=== PATIENT | female | born 1965 | race Caucasian/White ===

== ENCOUNTER 2024-02-09 18:01 | Emergency (ER) | payer BC, SELFPAY ==
[2024-02-09 18:06] VITALS: BP 164/72; PULSE 100; TEMP 36.9; O2SAT 96; BMI 25.1
--- NOTE | 2024-02-09 18:12 | XR_ITS ---
The [address] [address] Patient Name: ELSIE BROWER MRN: [id number] date: 1965 Sex: F Assigned Patient Location: ER Current Patient Location: ED.MAIN Accession/Order Number: [id number] Exam Date: 02/09/2024 18:46 Report Date: 02/09/2024 20:08 At the request of: MELINDA CHIN Procedure: XR knee RT 4V XR knee RT 4V, 02/09/2024 5:46 PM CDT: History: pain injury. . Comparison: None. Technique: 4 views right knee Findings/Impression: There is an acute nondisplaced fracture of the upper pole of the patella, best noted on the lateral radiograph. There is suprapatellar soft tissue swelling. There is no knee joint effusion. Electronically authenticated by: ANNIKA JOE Date: 02/09/2024 20:08
--- NOTE | 2024-02-09 20:18 | ED_ITS ---
HPI HPI - Extremity Injury (Lower) General Chief Complaint: Extremity Injury, Lower Stated Complaint: FELL Time Seen by Provider: 02/09/24 18:12 Source: patient and family () Mode of arrival: walk-in Limitations: no limitations History of Present Illness HPI Narrative: 58-year-old female presents to the emergency department with complaint of right knee injury. Patient states she recently became ill this evening, felt like she had to throw up, went running to the bathroom, dropped down to her knees, causing injury to the right 1. The other symptoms have improved. She complains of tenderness, swelling, bruising over the knee. Denies any other injury, motor or sensory changes, paresthesias. History of knee replacement surgery Quality:?Blunt trauma Severity:?Mild Timing:?Injury occurred shortly prior to arrival, Context: Normal setting and activity? Modifying factors:?Pain worse with palpation, Associated symptoms: swelling, bruising Related Data Allergies Allergy/AdvReac Type Severity Reaction Status Date / Time amoxicillin Allergy Intermediate Hives Verified 02/09/24 18:13 garlic Allergy Intermediate Anaphylaxis Verified 02/09/24 18:13 meperidine [From Demerol] Allergy Intermediate Hives Verified 02/09/24 18:13 tramadol Allergy Intermediate Hives Verified 02/09/24 18:13 Opioid HPI Opioid Management Most Recent Pain and Opioid Data: No Data to Display Review of Systems ROS Constitutional Denies: fatigue or malaise Musculoskeletal Reports: extremity pain, extremity swelling, joint pain and joint swelling; Denies: limited range of motion Neurological Denies: numbness in extremities or weakness in extremities Endocrine Denies: fatigue Exam Constitutional Vital Signs, click to edit/add: Last Vital Signs Temp 98.4 F 02/09/24 18:06 Pulse 100 H 02/09/24 18:06 Resp 18 02/09/24 18:06 BP 164/72 H 02/09/24 18:06 Pulse Ox 96 02/09/24 18:06 O2 Del Method Room Air 02/09/24 18:06 Documenting provider has reviewed patient's vital signs: yes Common normals: no apparent distress, oriented x3 and alert General appearance: well developed Cardio Peripheral pulses: dorsalis pedis pulses present right 2+ Extremity Other: Right knee: +tenderness to the patella with localized area of swelling, bruising consistent with hematoma.? No tenderness to the remainder of the knee, medial or lateral joint lines, posterior fossa.? No crepitus, deformity, instability, warmth.? ROM full flexion extension, but causes pain.? Strength 5/5 Neuro Common normals: oriented x3, no focal motor deficits and no sensory deficits noted Sensorium/orientation: alert Psych Common normals: mental status grossly normal and thought process normal Thought process: normal thought process Course Reevaluation(s) Reevaluation #1: Discussed with patient and results, plan, and disposition. Agreeable with plan and voices no other questions or concerns Time: 20:19 Vital Signs Vital signs: Vital Signs Temperature 98.4 F 02/09/24 18:06 Pulse Rate 100 H 02/09/24 18:06 Respiratory Rate 18 02/09/24 18:06 Blood Pressure 164/72 H 02/09/24 18:06 Pulse Oximetry 96 02/09/24 18:06 Oxygen Delivery Method Room Air 02/09/24 18:06 Temperature 98.4 F 02/09/24 18:06 Pulse Rate 100 H 02/09/24 18:06 Respiratory Rate 18 02/09/24 18:06 Blood Pressure 164/72 H 02/09/24 18:06 Pulse Oximetry 96 02/09/24 18:06 Oxygen Delivery Method Room Air 02/09/24 18:06 MDM - Extremity Injury (Lower) MDM Narrative Medical decision making narrative: This is a pleasant 58-year-old female who presents to the emergency department with complaint of knee injury. Describes as blunt trauma On arrival, afebrile, vital signs are stable. On exam, nontoxic, well-appearing patient in no distress. On evaluation of right knee, there is a small area of bruising, swelling, hematoma over the superior patella region. No other tenderness is noted to the knee. No laxity. Range of motion full. Neurovascularly intact. X-ray imaging of her right knee, per radiology report reveals fracture of the superior aspect of her patella. Management: Discussion with independent historian: Her Favor knee pain secondary to patellar fracture Fracture, dislocation less likely based on imaging Independent interpretation of right knee x-ray reveals fracture of the superior aspect of the patella Disposition ? The patient was discharged. Patient placed in knee immobilizer and crutches. Advised RICE therapy Plan: Patient will be discharged to home. Condition at time of disposition: stable ? Advised to follow up with primary provider. Advised to return for any worsenin g and/or development of new, concerning signs or symptoms PLEASE NOTE: Portions of the medical record may have been produced using electronic flat spring assembler and may contain errors with respect to translation of words which may not have been identified prior to finalization of the chart. Imaging Data Right Knee: Attestation: I personally reviewed and interpreted this imaging study as follows: (Fracture superior patella) Discharge Plan Discharge Stand Alone Forms: Work/School Release, Portal Instructions Chief Complaint: Extremity Injury, Lower Clinical Impression: Fracture of patella, Acute pain of right knee Patient Disposition: Home, Self-Care Time of Disposition Decision: 20:22 Condition: Good Mode of Transportation: Private Vehicle Print Language: Maori Instructions: Patellar Fracture (ED), P.R.I.C.E. Treatment (ED) Referrals: Peng Ash MD [Physician] - 02/10/24
== END 2024-02-09 20:43 | disposition home or self-care (01) ==
PROVIDERS: Emergency Provider Emergency Medicine
DX: S82.001A Unspecified fracture of right patella, initial encounter for closed fracture (principal); M25.561 Pain in right knee; W22.8XXA Striking against or struck by other objects, initial encounter
CPT/HCPCS: 73564; 99283